=== PATIENT | female | born 1980 | race Caucasian/White ===

== ENCOUNTER 2016-10-25 02:19 | Emergency (ER) | payer MEDICARE, OTHER ==
[~2016-10-25] VITALS: Ht 154.9 cm; Wt 72.7 kg
[~2016-10-25 02:19] MED LIST changes: -BUSP5TAB59 PO; -GLIP5TAB13 PO; -METF500T4 PO; -METH4TAB27 PO
[2016-10-25] MEDS ORDERED: ALBUTEROL/IPRATROPIUM 3MG-0.5MG/3ML (DUONEB) NEB VIAL INH ONE (02:25)
[2016-10-25] MEDS ORDERED: methylPREDNISolone 125 MG (Solu-MEDROL) VIAL IM ONE (02:25)
[2016-10-25] MEDS ORDERED: methylPREDNISolone 125 MG (Solu-MEDROL) VIAL IV ONE (02:55)
[2016-10-25] MEDS ORDERED: SODIUM CHLORIDE FLUSH 10 ML SYR IV PRN (03:55)
[2016-10-25] MEDS ORDERED: METF500T4 PO (04:31)
[2016-10-25] MEDS ORDERED: GLIP5TAB13 PO (04:31)
[2016-10-25] MEDS ORDERED: BUSP5TAB59 PO (04:31)
[2016-10-25] MEDS ORDERED: HYDROXYSUT PO (04:31)
[2016-10-25] MEDS ORDERED: METH4TAB27 PO ×2 (05:06→05:28)
[2016-10-25 05:30] VITALS: BP 92/57
== END 2016-10-25 05:27 | disposition home or self-care (01) ==
LOC: EDUNIT# 02:19 → ED 02:20
DX: T58.11XA Toxic effect of carbon monoxide from utility gas, accidental (unintentional), initial encounter (principal); R06.2 Wheezing; R11.0 Nausea; Y92.009 Unspecified place in unspecified non-institutional (private) residence as the place of occurrence of the external cause
CPT/HCPCS: 36415; 82375; 88738; 94640; 96361; 96374; 99284; J2930; J7030; 99283

== ENCOUNTER → 2016-10-25 | Outpatient (CLI) | payer OTHER, MEDICARE ==
[~2016-10-25] MED LIST: BUSP5TAB59 PO; CITA10TA12 PO; CITA40TA5 PO; FLUT1DIS4 IH; GLIP5TAB13 PO; HYDROXYSUT PO; LISI2.5T PO; LURA80TA PO; MELO-249 PO; METF500T4 PO; METH4TAB27 PO; METO25TA60 PO; MONT10TA21 PO; OMEP20CA12 PO; TRAM-25 PO; TRM50T PO
== END ==
LOC: EMS 01:59
PROVIDERS: ATTEND Emergency Medicine
DX: R51 Headache (principal); R11.0 Nausea